=== PATIENT | male | born 1975 | race African-American/Black ===

== ENCOUNTER 2019-07-16 10:38 | Emergency (ER) | payer BC ==
--- NOTE | 2019-07-16 10:50 | ED ---
Upper Extremity Pain - HPI Summary HPI Summary: Patient is a 44 y/o M presenting to the ED for a chief complaint of right shoulder pain that began 2 days ago. Patient states that he was playing flag football 2 days ago and fell after tackling someone, landing on his right shoulder. Since the fall, he notes right shoulder pain and decreased ROM in the right UE. He denies numbness and paresthesia. Movement aggravates the shoulder pain. Patient placed a lidocaine patch to the area and took ibuprofen 600 mg for his pain. PMHx is significant for fibula fracture. He notes a history of torn ligaments in the right shoulder for which he had physical therapy. PSHx is significant for fibula fracture repair. He is right-handed. - History of Current Complaint Chief Complaint: EDShoulderClavicJulietj Stated Complaint: RT SHOULDER PAIN PER PT Time Seen by Provider: 07/16/19 10:45 Hx Obtained From: Patient Mechanism Of Injury: Fall From A Standing Position Timing: Constant Severity Initially: Moderate Severity Currently: Moderate Pain Location: Shoulder - Right Aggravating Factor(s): Movement Alleviating Factor(s): Nothing Associated Signs & Symptoms: Negative: Numbness/Tingling Related History: Dominant Hand Right - Allergies/Home Medications Allergies/Adverse Reactions: Allergies Allergy/AdvReac Type Severity Reaction Status Date / Time No Known Allergies Allergy Verified 07/16/19 10:44 Home Medications: Home Medications Omeprazole CAP (NF) [Prilosec CAP* 20 MG] 20 mg PO BID 07/16/19 [History Confirmed 07/16/19] PMH/Surg Hx/FS Hx/Imm Hx Previously Healthy: Yes Endocrine/Hematology History: Denies: Hx Diabetes Cardiovascular History: Denies: Hx Hypercholesterolemia, Hx Hypertension Musculoskeletal History: Reports: Hx of Fracture(s) - Fibula Sensory History: Denies: Hx Legally Blind, Hx Deafness Opthamlomology History: Denies: Hx Legally Blind EENT History: Denies: Hx Deafness - Surgical History Surgical History: Yes Surgery Procedure, Year, and Place: Fibula fracture repair Infectious Disease History: No Infectious Disease History: Denies: Traveled Outside the [place] in Last 30 Days - Family History Known Family History: Negative: Diabetes - Social History Lives: With Family Alcohol Use: None Hx Substance Use: No Substance Use Type: Reports: None Hx Tobacco Use: No Smoking Status (MU): Never Smoked Tobacco Review of Systems Positive: Arthralgia - Right shoulder, Decreased ROM - Right UE Negative: Paresthesia, Numbness All Other Systems Reviewed And Are Negative: Yes Physical Exam - Summary Physical Exam Summary: Constitutional: Well-developed, Well-nourished, Alert. (-) Distressed Skin: Warm, Dry HENT: Normocephalic; Atraumatic Eyes: Conjunctiva normal Neck: Musculoskeletal ROM normal neck. (-) JVD, (-) Stridor, (-) Nuchal rigidity Cardio: Rhythm regular, rate normal, Heart sounds normal; Intact distal pulses; Radial pulses are 2+ and symmetric. (-) Murmur Pulmonary/Chest wall: Effort normal. (-) Respiratory distress Abd: NT, ND Musculoskeletal: (-) Edema. Anterior right shoulder pain, pain with shoulder flexion and abduction, no tenderness of the elbow, wrist, or hand. No cervical/ thoracic/lumbar tenderness. Neuro: Alert, Oriented x3 Psych: Mood and affect Normal Triage Information Reviewed: Yes Vital Signs On Initial Exam: Initial Vitals Temp Pulse Resp BP Pulse Ox 98.3 F 55 19 146/77 99 07/16/19 10:41 07/16/19 10:41 07/16/19 10:41 07/16/19 10:41 07/16/19 10:41 Vital Signs Reviewed: Yes Procedures - Sedation Patient Received Moderate/Deep Sedation with Procedure: No Diagnostics - Vital Signs Vital Signs Temp Pulse Resp BP Pulse Ox 07/16/19 10:41 98.3 F 55 19 146/77 99 - Laboratory Lab Statement: Any lab studies that have been ordered have been reviewed, and results considered in the medical decision making process. - Radiology Shoulder X-ray Radiology Interpretation Completed By: Radiologist Summary of Radiographic Findings: Shoulder X-ray IMPRESSION: OSTEOARTHRITIS. NO ACUTE OSSEOUS INJURY. IF SYMPTOMS PERSIST, RECOMMEND REPEAT IMAGING. Reviewed by Dr. Yeboah. Course/Dx - Course Course Of Treatment: 44 y/o male p/w L shoulder pain after sports injury. - PE w tenderness ant should, AC joint. - Full ROM but pain w flexion and abduction. - XR neg, f/u orthopedics, motrin and flexeril given - Diagnoses Provider Diagnoses: Fall, Shoulder pain Discharge ED - Sign-Out/Discharge Documenting (check all that apply): Patient Departure - Discharge - Discharge Plan Condition: Stable Disposition: HOME Prescriptions: Cyclobenzaprine TAB* [Flexeril 10 MG TAB*] 10 mg PO TID PRN 4 Days #12 tab PRN Reason: Pain - Moderate Ibuprofen TAB* [Motrin TAB* 800 MG] 800 mg PO TID PRN 10 Days #30 tab PRN Reason: Pain - Moderate Patient Education Materials: Shoulder Sprain (ED) Referrals: Balta Rudolph DO [Primary Care Provider] - Additional Instructions: You were seen in the emergency department for shoulder pain. Your Xrays did not show any fractures. Take motrin 800 mg as needed for pain. Flexeril at night for pain. If any studies were not completed at the time of discharge you will be called with the relevant results. Please follow up with your primary care doctor in next 2-3 days and return to emergency department for worsening or concerning symptoms. It was a pleasure taking care of you today. - Billing Disposition and Condition Condition: STABLE Disposition: Home - Attestation Statements Document Initiated by Jeremy: Yes Documenting Scribe: Mary Vargas Provider For Whom Jeremy is Documenting (Include Credential): Venkatesh Yeboah MD Scribe Attestation: IMary, scribed for Venkatesh Yeboah MD on 07/16/19 at 1136. Scribe Documentation Reviewed: Yes Provider Attestation: The documentation as recorded by the Mary knowles accurately reflects the service I personally performed and the decisions made by me, Venkatesh Yeboah MD Status of Scribe Document: Viewed
[2019-07-16] MEDS ORDERED: Acetaminophen TAB* 325 MG PO ONE (11:05)
[2019-07-16] MEDS ORDERED: Ibuprofen TAB* 600 MG PO ONE (11:05)
[2019-07-16 11:54] VITALS: BP 168/93
== END 2019-07-16 11:53 | disposition home or self-care (01) ==
LOC: ED 10:38
DX: M25.511 Pain in right shoulder (principal); W18.39XA Other fall on same level, initial encounter; Y93.62 Activity, american flag or touch football; Y92.9 Unspecified place or not applicable; Z79.899 Other long term (current) drug therapy
CPT/HCPCS: 99282; A9270-GY